=== PATIENT | female | born 1930 | race Hispanic/Latino ===

== ENCOUNTER 2017-12-15 09:04 | Observation (INO) | payer MEDICARE ==
[~2017-12-15] VITALS: Ht 152.4 cm; Wt 45.4 kg
[~2017-12-15 09:04] MED LIST: AMLO10TA2 PO; AROM1FL. PO; ATOR10 PO; LACT1CAP58 PO; LORA0.5T2 PO; MONT10TA24 PO; PANT40TA25 PO; SENN1TAB PO; SIME80TA12 PO; TIOT18CA3 IH; URSO300C4 PO
[2017-12-15 10:24] LABS: BASOPHILS % (AUTO) 0.3 % (0.0-5.0); EOSINOPHILS % (AUTO) 0.2 % (0.0-8.0); HEMATOCRIT 34.6 % (36-48); LYMPHOCYTES % (AUTO) 8.6 % (21.0-51.0); MEAN CORPUSCULAR HEMOGLOBIN 31.7 pg (27.0-33.0); MEAN CORPUSCULAR HGB CONC 34.5 g/dL (32.0-36.0); MEAN CORPUSCULAR VOLUME 91.7 fL (79-99); MONOCYTES % (AUTO) 5.4 % (3.0-13.0); NEUTROPHILS % (AUTO) 85.5 % (40.0-77.0); PLATELET COUNT (AUTO) 183 K/uL (130-400); RED BLOOD CELL COUNT(AUTO) 3.78 MIL/uL (4.00-5.50); RED CELL DISTRIBUTION WIDTH 13.6 % (11.0-15.5)
[2017-12-15 10:32] LABS: CREATININE 0.6 mg/dL (0.5-1.5)
[2017-12-15] MEDS ORDERED: KETOROLAC TROMETHAMINE 15MG/ML ONE (11:23)
[2017-12-15] MEDS ORDERED: GUAIFENESIN-DM 200/20 MG 10 ML PO PRN (12:15)
[2017-12-15] MEDS ORDERED: HYDRALAZINE HCL 20 MG/ML VIAL IV PRN (12:15)
[2017-12-15] MEDS ORDERED: POTASSIUM CHLORIDE 10% ELIXIR 20 MEQ/15 ML UDCUP PO PRN (12:15)
[2017-12-15] MEDS ORDERED: LACTULOSE 20 GM/30 ML UDCUP PO PRN (12:15)
[2017-12-15] MEDS ORDERED: GLUCAGON 1MG KIT 1 MG ML IM PRN (12:15)
[2017-12-15] MEDS ORDERED: LIDOCAINE HCL-MPF 1% 2ML VIAL IVP PRN (12:15)
[2017-12-15] MEDS ORDERED: MAG HYDROX/AL HYDROX/SIMETH ES 30 ML SUSP UDCUP PO PRN (12:15)
[2017-12-15] MEDS ORDERED: NITROGLYCERIN 0.4 MG SL TAB SL PRN (12:15)
[2017-12-15] MEDS ORDERED: POTASSIUM CHLORIDE 20MEQ/100ML 100 ML IV PRN (12:15)
[2017-12-15] MEDS ORDERED: POTASSIUM CHLORIDE 20 MEQ ERTAB PO PRN (12:15)
[2017-12-15] MEDS ORDERED: ONDANSETRON HCL 4 MG/2 ML VIAL IV PRN (12:15)
[2017-12-15] MEDS ORDERED: ACETAMINOPHEN 325 MG TAB PO PRN ×2 (12:15)
[2017-12-15] MEDS ORDERED: DEXTROSE 50%-WATER 50 ML DISP.SYRIN IV PRN (12:15)
[2017-12-15] MEDS ORDERED: MORPHINE SULFATE 2 MG/ML 1ML SYG IV PRN (12:15)
[2017-12-15] MEDS ORDERED: ACETAMINOPHEN-CODEINE 300/30MG TAB PO PRN (12:15)
[2017-12-15] MEDS ORDERED: KETOROLAC TROMETHAMINE 15MG/ML IV PRN (13:00)
[2017-12-15] MEDS ORDERED: IPRATROPIUM/ALBUTEROL SULFATE 3 ML SOLUTION IH PRN (13:00)
[2017-12-15 16:30] VITALS: BP 154/72
[2017-12-15] MEDS: INSULIN HUMULIN R 100 UNIT/ML 3ML SQ SCH ×2 (16:30→20:39)
[2017-12-15] MEDS ORDERED: [UNRECOGNIZED DRUG - OTHER] PO (16:56)
[2017-12-15] MEDS ORDERED: URSO500T9 PO (16:56)
[2017-12-15] MEDS ORDERED: PARO10TA71 PO (16:56)
[2017-12-15] MEDS ORDERED: CYAN500 PO (16:56)
[2017-12-15] MEDS ORDERED: AMLO5TAB2 PO (16:56)
[2017-12-15] MEDS: ACETAMINOPHEN-CODEINE 300/30MG TAB PO PRN (17:34)
[2017-12-15] MEDS: IPRATROPIUM 0.5 MG/2.5 ML INH IH SCH ×2 (19:01→23:55)
[2017-12-15 20:00] VITALS: BP 129/58
[2017-12-15] MEDS: FAMOTIDINE 20MG TAB 20 MG TAB PO SCH (20:38)
[2017-12-15 23:47] VITALS: BP 129/61
[2017-12-16] MEDS: ACETAMINOPHEN-CODEINE 300/30MG TAB PO PRN ×2 (00:15→08:18)
[2017-12-16 00:32] LABS: BILIRUBIN,URINE Negative (NEGATIVE); COLOR,URINE Yellow (YELLOW); GLUCOSE, URINE (UA) Negative (NEGATIVE); KETONES,URINE Negative (NEGATIVE); LEUKOCYTE ESTERASE ,URINE Negative (NEGATIVE); NITRATE,URINE Negative (NEGATIVE); OCCULT BLOOD,URINE Negative (NEGATIVE); PH,URINE 5.5 (5.0-8.0); PROTEIN,URINE POS 1+ (NEGATIVE)
[2017-12-16 00:33] LABS: APPEARANCE,URINE SLIGHTLY CLOUDY (CLEAR)
[2017-12-16 00:44] LABS: BACTERIA,URINE Few /HPF (None Seen); RBC,URINE 0-1 /HPF (0-1); SQUAMOUS EPITHELIAL CELL,UR 30-50 /HPF (0-2)
[2017-12-16 04:00] VITALS: BP 131/63
[2017-12-16] MEDS: IPRATROPIUM 0.5 MG/2.5 ML INH IH SCH ×2 (06:18→10:51)
[2017-12-16 06:38] LABS: HEMATOCRIT 31.1 % (36-48); MEAN CORPUSCULAR HEMOGLOBIN 32.6 pg (27.0-33.0); MEAN CORPUSCULAR HGB CONC 35.3 g/dL (32.0-36.0); MEAN CORPUSCULAR VOLUME 92.3 fL (79-99); PLATELET COUNT (AUTO) 163 K/uL (130-400); RED BLOOD CELL COUNT(AUTO) 3.37 MIL/uL (4.00-5.50); RED CELL DISTRIBUTION WIDTH 13.4 % (11.0-15.5); WHITE BLOOD COUNT (AUTO) 7.5 K/uL (4.8-10.8)
[2017-12-16 06:41] LABS: CREATININE 0.6 mg/dL (0.5-1.5); POTASSIUM 3.6 mmol/L (3.5-5.1)
[2017-12-16] MEDS: INSULIN HUMULIN R 100 UNIT/ML 3ML SQ SCH (07:30)
[2017-12-16 08:00] VITALS: BP 160/73
[2017-12-16] MEDS: FAMOTIDINE 20MG TAB 20 MG TAB PO SCH (08:17)
[2017-12-16] MEDS ORDERED: ENOXAPARIN SODIUM 40 MG/0.4 ML SYRINGE SQ SCH (09:00)
[2017-12-16] MEDS ORDERED: TRAM50TA2 PO (10:20)
[2017-12-16 12:00] VITALS: BP 134/70
== END 2017-12-16 13:40 | disposition home or self-care (01) ==
LOC: EDH 09:04 → EDHIP 11:55 → 4BH 16:45
PROVIDERS: ADMIT Internal Medicine; ATTEND Internal Medicine
DX: S32.591A Other specified fracture of right pubis, initial encounter for closed fracture (principal); E11.9 Type 2 diabetes mellitus without complications; K29.70 Gastritis, unspecified, without bleeding; W22.8XXA Striking against or struck by other objects, initial encounter; Y93.89 Activity, other specified; Y92.89 Other specified places as the place of occurrence of the external cause; Y99.8 Other external cause status; Z96.653 Presence of artificial knee joint, bilateral; Z98.49 Cataract extraction status, unspecified eye
CPT/HCPCS: 36415 ×2; 70450; 73552; 73562; 73700; 80048 ×2; 81001; 82948 ×3; 85025; 85027; 94640 ×4; 94664; 96372; 97039; 97161; 99285; G0378 ×26; G8978; G8979; G8980; G8981; G8982; G8983; J1650; J1885